=== PATIENT | female | born 1945 | race Two or more races ===

== ENCOUNTER 2024-05-13 11:07 | Outpatient (CLI) | payer MEDICARE, MEDICAID, SELFPAY ==
--- NOTE | 2024-05-13 11:11 | CA_ITS ---
APPROVED REPORT EXAM: Comprehensive 2D, Doppler, and color-flow Echocardiogram Building Energy Consultant: Neha Williamson CRT Ht: 5 ft 4 in Wt: 174lbs BSA: 1.84 BP: 155/70 mmHg Indications: Chest Pain, COPD, Shortness of Breath, Diabetes, Peripheral Edema, Hyperlipidemia, Hypertension/HDD 2D Dimensions LA Volume 56.20 mL LA Volume Index 29.70 mL/m2 (M/F) 16-34 M-Mode Dimensions RVDd 2.46 cm (0.9-2.6) LA Diam 4.13 cm (1.9-4.0) LVDd 4.16 cm (3.5-5.7) LVDs 1.99 cm (3.5-5.7) IVSd 1.60 cm (0.6-1.1) PWd 0.82 cm (0.6-1.1) EF (Teich) 83.60% FS 52.20% EDV (Teich) 76.80 mL TAPSE 1.96 (<1.7) ESV (Teich) 12.60 mL LV Diastology E Decel Time 150 (160-240 msec) E/A Ratio 0.59 MED A' 10.20 cm/s LAT A' 12.40 cm/s Aortic Valve AKASH Index 1.41 cm2/m2 AoV Peak Emmanuel. 221.0 (50-130 cm/s) AO Peak GR. 20.20 mmHg AO Mean GR. 11.20 (<5 mmHg) AO VTI 46.2 (18-25 cm) AKASH (VTI) 2.66 (2.5-4.5 cm2) Mitral Valve MV E Max Emmanuel. 72.0 (40-130 cm/s) MV A Velocity 122.0 (40-130 cm/s) E/A Ratio 0.59 MV PHT 44.0 ms Pulmonary Valve PV Peak Velocity 136.0 (50-150 cm/s) Tricuspid Valve TR P. Velocity 221.00 cm/s RAP Estimate 10.00 mmHg RVSP 29.60 mmHg Left Ventricle The left ventricle is normal size. The left ventricular systolic function is normal. The left ventricular ejection fraction is within the normal range. There is increased LV wall thickness. There is normal LV segmental wall motion. Transmitral Doppler flow pattern suggests impaired LV relaxation. LVEF is 60%. Right Ventricle The right ventricle is normal size. The right ventricular systolic function is normal. Atria Left atrium is moderately dilated. Right atrium is mildly dilated. There is no Doppler evidence of interatrial shunt. Aortic Valve The aortic valve is mildly thickened. Mild aortic regurgitation. Mild aortic stenosis. AKASH by continuity equation is 2.5 cm per. Peak velocity 2.7 m/s. Mean AV gradient 14 mmHg. Max AV gradient 28 mmHg. Mitral Valve Mild mitral annular calcification. The mitral valve leaflets are mildly thickened. No evidence of mitral valve stenosis. Mild mitral regurgitation. Tricuspid Valve The tricuspid valve leaflets are thin and pliable. Mild tricuspid regurgitation. RVSP is 20-25 mmHg. Pulmonic Valve The pulmonary valve is normal in structure. Mild pulmonic regurgitation. The ascending aorta is not well-visualized. Great Vessels The aortic root is normal in size. IVC is normal in size and collapses >50% with inspiration. Pericardium Trivial, anterior pericardial effusion is present. No echo indications of tamponade. Other Information Study Quality: Technically Difficult Conclusion Technically difficult study due to poor acoustic windows. Normal biventricular systolic function. Biatrial dilation. Mild (AKASH by continuity equation is 2.5 cm per. Peak velocity 2.7 m/s. Mean AV gradient 14 mmHg. Max AV gradient 28 mmHg). Mild AI, mild MR, mild TR, mild PI. Electronically signed by : Liz Knowles MD 05/19/2024 01:28:06
--- NOTE | 2024-05-13 11:55 | CT_ITS ---
APPROVED REPORT Saw Setter: CLINICAL INDICATION Chest Pain TECHNIQUE Image Acquisition: A 128 slice MDCT scanner ([place] View) was used for data acquisition. A noncontrast coronary calcium scan was performed. A CT attenuation threshold of 130 Hounsfield units (HU) was used for the detection of calcium in contiguous voxels of 1 sq mm in area to be counted as individual lesions. Bolus tracking in the ascending aorta with a threshold of 180 HU was performed. Immediately afterwards, ECG synchronized cardiac CT was then performed from the cardiac base to apex using retrospective gating with ECG tube current modulation. A total of 85 mL of Isovue 370 mg/mL contrast medium was administered at 5 mL/sec followed by a saline flush using a biphasic injection protocol. A tube voltage of 120 KVp was used. The patient received the following medications prior to the cardiac CT. 50 mg of oral metoprolol 15 mg of oral ivabradine 0.8 mg of sublingual nitroglycerin The average heart rate at the time of acquisition was 64 bpm and regular. Image Reconstruction Transaxial images were reconstructed at 0.67 mm slide thickness. Data was reviewed interactively on an advanced workstation capable of 2 and 3-dimensional displays in all conventional reconstruction formats, including multiplanar reformations, maximum intensity projections, curved multiplanar reformations, and volume rendered reconstructions. When applicable, selected routine images describing the relevant coronary anatomy and pathology were saved and sent to PACS. Complications None Technical Quality Overall image quality was good. Coronary artery opacification was adequate. Total DLP (Dose-Length Product) is 1915.5 mGy-cm. The reported value represents the total of one or more individual components during the CT acquisition of this date and at this time, and as such, the same value may appear in more than one CT report depending on the interpreting/reporting physicians. COMPARISON None FINDINGS CT Coronary Calcium Scoring LMA (Left Main Artery) = 0 LAD (Left Anterior Descending) = 0 LCX (Left Coronary Circumflex) = 0 RCA (Right Coronary Artery) = 0 Total Calcium Score = 0 using the AJ-130 method. The interpretation of the calcium heart score is based on the following continuum*: 0 = no calcified plaque detected (risk of coronary artery disease is very low ??? less than 5%) 1-10 = calcium detected in extremely minimal levels (risk of coronary diseases is still low ??? less than 10%) 11-100 = mild levels of plaque detected with certainty (mild or minimal narrowing of heart arteries is likely) 101-400 = definite,at least moderate levels of plaque detected (relatively high risk of a heart attack within 3-5 years) >401-999 = extensive levels of plaque detected (high risk of heart attack, high levels of vascular disease are present, high likelihood of at least one significant coronary narrowing) *The calcium heart score quantifies the burden of coronary calcification/plaque in the coronary arteries. The calcium heart score is not able to evaluate the presence or burden of non-calcified (i.e. soft) plaque. There is mild calcification in the aortic valve, mitral annulus, and the ascending and descending thoracic aorta. Coronary CT Angiography The coronary arterial system is right dominant. Quantitative Stenosis Grading: Left Main (LM): The left main originates normally from the left sinus of Valsalva. The LM bifurcates into the left anterior descending artery and left circumflex artery. The LM is patent with no evidence of atherosclerosis. Left Anterior Descending (LAD) and Diagonal Branches: The LAD gives off 3 diagonal branch(es). The LAD and its branches are patent with no evidence of atherosclerosis. There is no evidence of LAD-myocardial bridge. Left Circumflex (LCX) and Obtuse Marginals (OM): The LCX gives off 2 Obtuse Marginal (OM) branch(es). The LCX and its branches are patent with no evidence of atherosclerosis. Right Coronary Artery (RCA): The RCA originates normally from the right sinus of Valsalva. The RCA gives off a posterior descending artery (PDA) and posterolateral (PL) branches. The RCA and its branches are patent with no evidence of atherosclerosis. Non-Coronary Cardiac Findings: Analysis of the left ventricular (LV) structure and function was performed after 3-D reconstruction of the LV from axial images, with user-corrected automatic contouring for assessment of LV volumes and user-defined reconstruction from oblique planes for measurement of 3-D cardiac structure and function. -The left ventricle systolic function is normal. -There is no left atrial appendage filling defect. Two right pulmonary veins and two left pulmonary veins drain normally into the left atrium. -No pericardial thickening or calcification. -Central and branch pulmonary arteries in the [id number] are unremarkable. -Thoracic aorta within the visualized thoracic aortic-branches in the [id number] is unremarkable. Extracardiac Structures No significant extra-cardiac findings. Note, however, that this study is focused on the cardiac findings. IMPRESSION -Absence of coronary calcification with an Agatston score = 0 using the AJ-130 method. -No evidence of significant flow-limiting atherosclerosis of the coronary arteries. -CAD-RADS 0. Management recommendations per ACC/AHA guidelines*, as clinically appropriate. -Incidental finding of mild calcification in the aortic valve, mitral annulus, and the ascending and descending thoracic aorta. *Recommendations: CAD RADS 0: Reassurance. Consider non-atherosclerotic causes of chest pain. CAD RADS 1: Consider non-atherosclerotic causes of chest pain. Consider preventive therapy and risk factor modification. CAD RADS 2: Consider non-atherosclerotic causes of chest pain. Consider preventive therapy and risk factor modification, particularly for patients with nonobstructive plaque in multiple segments. CAD RADS 3: Consider further functional testing. Consider symptom-guided anti-ischemic and preventive pharmacotherapy as well as risk factor modification per published guideline statements. CAD RADS 4A: Consider further functional testing or invasive coronary angiography with revascularization per published guideline statements. Consider symptom-guided anti-ischemic and preventive pharmacotherapy as well as risk factor modification per published guideline statements. CAD RADS 4B: Invasive coronary angiography recommended with revascularization per published guideline statements. Consider symptom-guided anti-ischemic and preventive pharmacotherapy as well as risk factor modification per published guideline statements. CAD RADS 5: Consider invasive angiography and/or viability assessment with revascularization per published guideline statements. Consider symptom-guided anti-ischemic and preventive pharmacotherapy as well as risk factor modification per published guideline statements. CRITICAL RESULT None COMMUNICATION Per this written report The coronary and cardiac findings of this CCTA were reviewed, reported, and signed by Noe Knowles MD (W[employer] Sanding Machine Operator) Conclusion Electronically signed by : Liz Knowles MD 05/14/2024 12:43:52
[2024-05-13 12:16] VITALS: BMI 33.8
[2024-05-13 12:40] VITALS: BP 130/78; PULSE 69; RESP 18; O2SAT 97
[2024-05-13] MEDS: IVABRADINE HCL 7.5MG TABLET 15 MG PO (12:44)
[2024-05-13] MEDS: METOPROLOL TARTRATE 50MG TABLET 50 MG (12:44)
[2024-05-13 13:45] VITALS: BP 139/89; PULSE 53; RESP 18; O2SAT 97
[2024-05-13] MEDS: NITROGLYCERIN 0.4MG SL TABLET 0.4 MG SL (13:45)
[2024-05-13] MEDS: SODIUM CHLORIDE 0.9% 10ML SYR (RAD ONLY) 10 ML IV (13:49)
[2024-05-13] MEDS: 0.9 % SODIUM CHLORIDE 50 ML VIAL IV (13:49)
[2024-05-13] MEDS: IOPAMIDOL-370 (76%);100ML BOTTLE 85 ML IV (13:49)
[2024-05-13 13:50] VITALS: BP 124/70; PULSE 56; RESP 18; O2SAT 97
[2024-05-13 13:55] VITALS: BP 94/54; PULSE 57; RESP 18; O2SAT 97
[2024-05-13 14:05] VITALS: BP 129/64; PULSE 54; RESP 18; O2SAT 97
== END 2024-05-13 14:10 | disposition home or self-care (01) ==
LOC: RT 12:35 → RAD 12:40
PROVIDERS: PCP Nurse Practitioner Family; Visit Provider Physician Assistant
DX: I25.10 Atherosclerotic heart disease of native coronary artery without angina pectoris (principal); I10 Essential (primary) hypertension; E78.5 Hyperlipidemia, unspecified; R06.00 Dyspnea, unspecified; R42 Dizziness and giddiness; R60.0 Localized edema; R01.1 Cardiac murmur, unspecified
CPT/HCPCS: 75574; 93306; Q9967

== ENCOUNTER 2024-09-24 13:13 | Outpatient (CLI) | payer MEDICARE, MEDICAID, SELFPAY | END 2024-09-24 23:59 | disposition home or self-care (01) | LOC: SL 13:14 | PROVIDERS: PCP Nurse Practitioner Family; Visit Provider Specialist | DX: F03.B18 Unspecified dementia, moderate, with other behavioral disturbance (principal); R41.3 Other amnesia | CPT/HCPCS: 95816 ==

== ENCOUNTER 2024-10-02 15:02 | Outpatient (CLI) | payer MEDICARE, MEDICAID, SELFPAY ==
--- NOTE | 2024-10-02 15:03 | MR_ITS ---
FINAL REPORT TECHNIQUE: Multiplanar MR without contrast CLINICAL HISTORY: Encephalopathy memory loss COMPARISON: None FINDINGS: Diffusion sequences show no signal abnormality to indicate acute infarct. Mild generalized atrophy is present. No mass, hemorrhage or edema is seen. Ventricles are normal. Major vascular flow voids are intact. IMPRESSION: 1. No mass, acute infarct or hydrocephalus 2. Mild atrophy, unremarkable for age. Reviewed, Interpreted and Dictated by Yi Bucio MD Transcribed by Manisha Rubi Authenticated and . [facility]
== END 2024-10-02 23:59 | disposition home or self-care (01) ==
LOC: RAD 15:03
PROVIDERS: PCP Nurse Practitioner Family; Visit Provider Specialist
DX: R41.3 Other amnesia (principal); R42 Dizziness and giddiness; I10 Essential (primary) hypertension; F03.B18 Unspecified dementia, moderate, with other behavioral disturbance; G25.81 Restless legs syndrome; I25.110 Atherosclerotic heart disease of native coronary artery with unstable angina pectoris
CPT/HCPCS: 70551